=== PATIENT | male | born 2000 | race Caucasian/White ===

== ENCOUNTER 2019-11-29 04:54 | Emergency (ER) | payer BC, OTHER ==
[~2019-11-29] VITALS: Ht 187.9 cm; Wt 86.2 kg
[2019-11-29 05:01] VITALS: BP 124/77
[2019-11-29] MEDS ORDERED: IBU800 MG PO (07:11)
== END 2019-11-29 07:14 | disposition home or self-care (01) ==
LOC: ED 04:54
DX: T14.8XXA Other injury of unspecified body region, initial encounter (principal); M79.642 Pain in left hand; M25.561 Pain in right knee; M43.6 Torticollis; V49.49XA Driver injured in collision with other motor vehicles in traffic accident, initial encounter; Y93.I9 Activity, other involving external motion; Y92.488 Other paved roadways as the place of occurrence of the external cause; Y99.8 Other external cause status

== ENCOUNTER → 2019-12-14 | Outpatient (CLI) | payer OTHER, BC ==
[~2019-12-14] MED LIST: IBU800 MG PO
== END | disposition home or self-care (01) ==
LOC: RAD 10:38
DX: M54.5 Low back pain (principal)

== ENCOUNTER → 2020-04-12 | Outpatient (CLI) | payer BC | END | disposition home or self-care (01) | LOC: COVID19 13:00 | PROVIDERS: ATTEND Family Medicine | DX: U07.1 COVID-19 (principal) ==